=== PATIENT | male | born 1980 | race Caucasian/White ===

== ENCOUNTER → 2024-09-19 15:06 | Outpatient (CLI) | payer OTHER, SELFPAY ==
--- NOTE | 2024-09-19 15:07 | DI.MRI.S_ITS ---
PROCEDURE: MR LUMBAR SPINE WO CON INDICATIONS: low back pain TECHNIQUE: Noncontrast sagittal T1 spin echo and T2 fast echo, sagittal STIR, and T2 fast spin echo through the lumbar spine. In cases with scoliosis, additional coronal T2 fast spin echo may be performed. COMPARISON: None. FINDINGS: Image quality: Excellent. Alignment and Curvature: There is normal bony alignment. Bone Marrow: Marrow is of normal overall signal. No acute vertebral body compression fractures. Spinal Cord: Conus medullaris terminates at the L1 level. Visualized cord demonstrates normal signal and size. Paraspinous Soft Tissues: No paravertebral masses. T12-L1: Normal appearance. L1-L2: Normal appearance. L2-L3: Normal appearance. L3-L4: Normal appearance. L4-L5: Disc space narrowing and broad-based disc bulge associated with hypertrophic facet joints. There is effacement of the left lateral recess, minimally displacing the descending nerve root. Moderate left and right foraminal stenosis. No central stenosis. L5-S1: Broad-based disc bulge hypertrophic facet joints. No central stenosis. Mild left and no right foraminal stenosis. IMPRESSION: Degenerative disc disease and arthropathy in the lower lumbar spine results in effacement of the left lateral recess and moderate left foraminal stenosis. Approved by: Ric Oshea M.D. on 09/19/2024 at 17:52
== END ==
PROVIDERS: Family Provider Family Medicine
DX: M48.061 Spinal stenosis, lumbar region without neurogenic claudication (principal); M48.07 Spinal stenosis, lumbosacral region; M47.816 Spondylosis without myelopathy or radiculopathy, lumbar region; M47.817 Spondylosis without myelopathy or radiculopathy, lumbosacral region; M51.360 Other intervertebral disc degeneration, lumbar region with discogenic back pain only; M51.370 Other intervertebral disc degeneration, lumbosacral region with discogenic back pain only
CPT/HCPCS: 72148